=== PATIENT | female | born 1950 | race Caucasian/White ===

== ENCOUNTER 2016-12-02 12:56 | Outpatient (CLI) | END 2016-12-02 12:57 | disposition home or self-care (01) | LOC: RAD 12:56 | PROVIDERS: ATTEND Internal Medicine | DX: Z12.31 Encounter for screening mammogram for malignant neoplasm of breast (principal) | CPT/HCPCS: 77067 ==

== ENCOUNTER 2017-01-23 08:00 | Outpatient (RCR) ==
--- NOTE | 2017-01-09 10:50 | RS.OPPTDN ---
Subjective Date of Note: 01/09/17 Visit #: 4 Date of Evaluation: 01/01/17 Payer Source: MEDICARE Treatment Diagnosis: Rotator cuff arthropathy, AC OA R shld Current Subjective/complaints:: Patient reports she may have done too much yesterday. States she lifted a chair and could tell it may have been too heavy for her to lift. States the right shoulder in general feels better. She is performing her HEP. States she is performing the pendulum exercise in the shower. *Precautions: n/a Pain Assessment - Pain Description Pain Location: R shld Current Pain Intensity: 0 at rest - Treatment Modality: Ultrasound Parameters/Method Applied: X 10 mins 1.5 w/cm 2 continuous over the middle and anterior deltoid region of the right UE. Patient Position: Sitting - Heat/Cryotherapy Treatment: Hot Pack (X 15 mins to right shoulder) Interventions - Exercise/Activities/Manual Therapy Exercises/Activities: 21 mins. supine exercises of R shoulder PROM ,isometrics all directions 2 sets of 5 reps,3 # wand exercises of chest press and overhead flexion. Performed resisted bilateral shoulder ER in supine with red therand with no pain. Gave instructions for this at home and a red band. Given a green theraband for her scapular retraction exercises with her HEP. Manual Therapy: n/a HOME EXERCISE PROGRAM: cervical lat side bending, scapular retraction green band and shld ext and ER with red tband, and pendulum ex - Objective Findings Observations,measurements,etc.: Patient demonstrates functional PROM. Muscle strength is generally 4+/5 in all directions with shoulder in neutral. - Charges Total Direct Minutes: 31 minutes Total Treatment Time: 46 mins Procedures billed for this date of service:: HP, US, EX Assessment: Patient reports right shoulder feeling better. She is performing her exercises at home. She tries to avoid aggravating the right shoulder, but may have lifted too much yesterday. Continues to have discomfort with use of the right UE for reaching and lifting. Patient Education: Education of diagnosis, Body/Joint mechanics, Home Exercise Program, Activity Modification, Education of Plan of Care Patient demonstrates compliance with HEP?: Yes Short Term Goals Goal #1: pt with improved ROM R shld flex 150 abd 110 AAROM Goal to be met by: 01/15/17 Progress towards Goal:: Progressing Goal #2: pt with decreased pain <4/10 with activity Goal to be met by: 01/15/17 Progress towards Goal:: Progressing [facility] Goals Goal #1: pt with improved ROM R shld flex 160 abd 120 AROM Goal to be met by: 01/31/17 Progress towards goal: Progressing Goal #2: pt independent with HEP to maintain functional gains after dc Goal to be met by: 01/31/17 Progress towards goal: Progressing Goal #3: pt with increased strength R UE 4 to 4+/5 Goal to be met by: 01/31/17 Progress towards goal: Met Goal #4: pt to return to normal work activities with decreased pain. Goal to be met by: 01/31/17 Plan PLAN OF CARE EXPIRES ON:: 01/31/17 ORDER # VISITS AND/OR THROUGH DATE: 01/31/17 PLAN: Progress Exercises
--- NOTE | 2017-01-13 09:21 | RS.OPPTDN ---
Subjective Date of Note: 01/13/17 Visit #: 5 Date of Evaluation: 01/01/17 Payer Source: MEDICARE Treatment Diagnosis: Rotator cuff arthropathy, AC OA R shld Current Subjective/complaints:: Patient reports she is improving,sleeping better.She has no R shoulder pain at rest this morning,slight elevation of pain with external rotation. *Precautions: n/a Pain Assessment - Pain Description Pain Location: R shld Current Pain Intensity: 0 at rest - Treatment Modality: Ultrasound Parameters/Method Applied: 10 mins.@1.5 w/cm2,continuous mode to R shoulder @ RTC tendons site. - Heat/Cryotherapy Treatment: Hot Pack (20 mins. prior to US and exercises) Interventions - Exercise/Activities/Manual Therapy Exercises/Activities: 25 mins. supine exercises of R shoulder PROM ,isometrics all directions 2 sets of 10 reps,3 # wand exercises of chest press and overhead ,then sitting position of the same with 1# dumbbell,HEP review. Total minutes of Exercise: 25 Manual Therapy: n/a Total minutes of Manual Therapy: 0 HOME EXERCISE PROGRAM: cervical lat side bending, scapular retraction green band and shld ext and ER with red tband, and pendulum ex - Charges Total Direct Minutes: 35 Total Treatment Time: 55 Procedures billed for this date of service:: hp,US ,ex 2 Assessment: Patient progressing ,reports less difficulty with ADL's,sleeping better.She has crepitus present in the AC joint with IR/ER of the shoulder,but no sharp pain.Reminded patient to avoid the , 'no pain , no gain " theory." Patient Education: Education of diagnosis, Body/Joint mechanics, Home Exercise Program, Home Safety, Activity Modification, Education of Plan of Care Patient demonstrates compliance with HEP?: Yes Short Term Goals Goal #1: pt with improved ROM R shld flex 150 abd 110 AAROM Goal to be met by: 01/15/17 Progress towards Goal:: Partially Met Goal #2: pt with decreased pain <4/10 with activity Goal to be met by: 01/15/17 Progress towards Goal:: Progressing [facility] Goals Goal #1: pt with improved ROM R shld flex 160 abd 120 AROM Goal to be met by: 01/31/17 Progress towards goal: Progressing Goal #2: pt independent with HEP to maintain functional gains after dc Goal to be met by: 01/31/17 Progress towards goal: Progressing Goal #3: pt with increased strength R UE 4 to 4+/5 Goal to be met by: 01/31/17 Progress towards goal: Met Goal #4: pt to return to normal work activities with decreased pain. Goal to be met by: 01/31/17 Plan PLAN OF CARE EXPIRES ON:: 01/31/17 ORDER # VISITS AND/OR THROUGH DATE: 01/31/17 PLAN: Progress Exercises
--- NOTE | 2017-01-17 10:23 | RS.OPPTDN ---
Subjective Date of Note: 01/17/17 Visit #: 6 Date of Evaluation: 01/01/17 Payer Source: MEDICARE Treatment Diagnosis: Rotator cuff arthropathy, AC OA R shld Current Subjective/complaints:: Patient feels she possibly did her exericses wromg due to increased soreness.She actually is doing them properly,but recommended not to do as many reps. until the soreness lessens. *Precautions: n/a Pain Assessment - Pain Description Pain Location: R shld Pain Description: Dull, Aching Pain Description: aching with overhead tasks Current Pain Intensity: 0 at rest - Treatment Modality: Ultrasound Parameters/Method Applied: 10 mins. @ 1.5 w/cm2 to R shoulder (anterior deltoid area ) Patient Position: Sitting - Heat/Cryotherapy Treatment: Hot Pack (20 ins.prior to US and exercises) Interventions - Exercise/Activities/Manual Therapy Exercises/Activities: 20 mins. instruction and return demo of postural pullbacks with yellow theraband for rowing motion ,overhead pulling down and ended with pulling up with band under the feet ( elbows fully extended). Total minutes of Exercise: 20 Manual Therapy: n/a Total minutes of Manual Therapy: 0 HOME EXERCISE PROGRAM: cervical lat side bending, scapular retraction green band and shld ext and ER with red tband, and pendulum ex - Charges Total Direct Minutes: 30 Total Treatment Time: 50 Procedures billed for this date of service:: hp,US,ex 1 Assessment: Patient has increased ROM ,and strength ,but fatigues easily with overhead motion using theraband.She has no report of sharp pain today.She can benefit from strengthening for stability of the R shoulder,especially for tasks that require reaching away from her body. Patient Education: Education of diagnosis, Body/Joint mechanics, Home Exercise Program, Home Safety, Activity Modification, Education of Plan of Care Patient demonstrates compliance with HEP?: Yes Short Term Goals Goal #1: pt with improved ROM R shld flex 150 abd 110 AAROM Goal to be met by: 01/15/17 Progress towards Goal:: Met Goal #2: pt with decreased pain <4/10 with activity Goal to be met by: 01/15/17 Progress towards Goal:: Progressing Group Home Goals Goal #1: pt with improved ROM R shld flex 160 abd 120 AROM Goal to be met by: 01/31/17 Progress towards goal: Progressing Goal #2: pt independent with HEP to maintain functional gains after dc Goal to be met by: 01/31/17 Progress towards goal: Partially Met Goal #3: pt with increased strength R UE 4 to 4+/5 Goal to be met by: 01/31/17 Progress towards goal: Met Goal #4: pt to return to normal work activities with decreased pain. Goal to be met by: 01/31/17 Progress towards goal: Progressing Plan PLAN OF CARE EXPIRES ON:: 01/31/17 ORDER # VISITS AND/OR THROUGH DATE: 01/31/17 PLAN: Continue skilled PT to increase strength and stability in the R shoulder to safely do ADL ' s.
--- NOTE | 2017-01-20 09:28 | RS.OPPTDN ---
Subjective Date of Note: 01/20/17 Visit #: 7 Date of Evaluation: 01/01/17 Payer Source: MEDICARE Treatment Diagnosis: Rotator cuff arthropathy, AC OA R shld Current Subjective/complaints:: Patient reports increased muscle soreness from doing yardwork,but no sharp pain in the r shoulder.She is pleased with her progress. *Precautions: n/a Pain Assessment - Pain Description Pain Location: R shld Pain Description: Dull, Aching Pain Description: aching with overhead tasks Current Pain Intensity: 0 at rest - Heat/Cryotherapy Treatment: Hot Pack (20 mins. prior to exercises) Interventions - Exercise/Activities/Manual Therapy Exercises/Activities: 35 mins. total in supine ,sit and stand for PROM, progressed AROM with 1.5 to 2 # resistance multiple reps. of shoulder flexion , IR/ER,scaption,abduction scapular pinches,horizontal adduction,pendulum exercises.AROM is WNL all directions today. Total minutes of Exercise: 35 Manual Therapy: n/a Total minutes of Manual Therapy: 0 HOME EXERCISE PROGRAM: cervical lat side bending, scapular retraction green band and shld ext and ER with red tband, and pendulum ex - Charges Total Direct Minutes: 35 Total Treatment Time: 35 Procedures billed for this date of service:: hp,ex 2 Assessment: Patient progressing well toward all rehab goals.She has increased strength ,less pain with ADL's.She has symptoms of painful arc syndrome occasionally when the R UE is moving through scaption. Patient Education: Education of diagnosis, Body/Joint mechanics, Home Exercise Program, Home Safety, Activity Modification, Education of Plan of Care Patient demonstrates compliance with HEP?: Yes Short Term Goals Goal #1: pt with improved ROM R shld flex 150 abd 110 AAROM Goal to be met by: 01/15/17 Progress towards Goal:: Met Goal #2: pt with decreased pain <4/10 with activity Goal to be met by: 01/15/17 (4-5 with yardwork over the weekend,but is generally less) Progress towards Goal:: Partially Met Care Home Goals Goal #1: pt with improved ROM R shld flex 160 abd 120 AROM Goal to be met by: 01/31/17 Progress towards goal: Partially Met Goal #2: pt independent with HEP to maintain functional gains after dc Goal to be met by: 01/31/17 Progress towards goal: Partially Met Goal #3: pt with increased strength R UE 4 to 4+/5 Goal to be met by: 01/31/17 Progress towards goal: Met Goal #4: pt to return to normal work activities with decreased pain. Goal to be met by: 01/31/17 Progress towards goal: Partially Met Plan PLAN OF CARE EXPIRES ON:: 01/31/17 ORDER # VISITS AND/OR THROUGH DATE: 01/31/17 PLAN: D/C next session after review of exisitng HEP ,joint protection,and safety precautions for ADL's.
--- NOTE | 2017-01-23 09:19 | RS.OPPTDC ---
Date of Discharge: 01/23/17 Date of Evaluation: 01/01/17 Number of Visits: 8 Treatment Diagnosis: Rotator cuff arthropathy, AC OA R shld Current Level of Function: 9% deficit in the R shoulder based on UE functional score of 70 today. Current Complaints/Gains: Patient pleased with her progress,is compliant to all recommendations,doing her HEP as tolerated. Pain Assessment - Pain Description Pain Location: none present today Current Pain Intensity: 0 at rest Functional Outcome Measure UE Functional Index: 70 - G Codes & Severity Modifier G Codes & Modifier: NA Source of G Code score: NA Observation - Observation Posture: Rounded Shoulders Handedness: Right Gait - Gait Pattern General Gait Pattern Observation: No Deviations/Normal General Range of Motion: WNL all directions. Muscle Strength: 4+/5 - Heat/Cryotherapy Treatment: Hot Pack (20 mins. prior to exercises) Interventions - Exercise/Activities/Manual Therapy Exercises/Activities: 40 mins. total in supine ,sit and stand for PROM, progressed AROM with 1.5 to 2 # resistance multiple reps. of shoulder flexion , IR/ER,scaption,abduction scapular pinches,horizontal adduction,pendulum exercises.AROM is WNL all directions today.HEP copies given today. Total minutes of Exercise: 40 Manual Therapy: n/a Total minutes of Manual Therapy: 0 HOME EXERCISE PROGRAM: cervical lat side bending, scapular retraction green band and shld ext and ER with red tband, and pendulum ex - Charges Total Direct Minutes: 40 Total Treatment Time: 60 Procedures billed for this date of service:: hp,ex 3 Assessment Assessment: All rehab goals met.She has good return demo of HEP today. Patient Education: Home Exercise Program Rehab Potential: Good Short Term Goals Goal #1: pt with improved ROM R shld flex 150 abd 110 AAROM Goal to be met by: 01/15/17 Progress towards Goal:: Met Goal #2: pt with decreased pain <4/10 with activity Goal to be met by: 01/15/17 Progress towards Goal:: Met [employer] Goals Goal #1: pt with improved ROM R shld flex 160 abd 120 AROM Goal to be met by: 01/31/17 Progress towards goal: Met Goal #2: pt independent with HEP to maintain functional gains after dc Goal to be met by: 01/31/17 Progress towards goal: Met Goal #3: pt with increased strength R UE 4 to 4+/5 Goal to be met by: 01/31/17 Progress towards goal: Met Goal #4: pt to return to normal work activities with decreased pain. Goal to be met by: 01/31/17 Progress towards goal: Met
== END 2017-02-06 ==
PROVIDERS: ATTEND Orthopaedic Surgery
DX: M19.011 Primary osteoarthritis, right shoulder (principal); M75.121 Complete rotator cuff tear or rupture of right shoulder, not specified as traumatic

== ENCOUNTER 2017-11-24 08:54 | Outpatient (CLI) ==
--- NOTE | 2017-11-24 11:59 | MAMMO ---
EXAM: Bilateral digital screening mammogram (2-D and 3-D) History: Screening Comparison: Bilateral mammogram 12/02/2016 Findings: MLO and CC views of bilateral breasts demonstrate scattered fibroglandular breast parenchy ma. CAD was reviewed by the radiologist. Tomosynthesis was performed. There are no dominant masses , no suspicious microcalcifications and no architectural distortions Impression: Stable negative mammogram. Recommend followup routine screening mammography in 1 year. BIRADS 1
== END 2017-11-24 08:55 | disposition home or self-care (01) ==
LOC: RAD 08:54
PROVIDERS: ATTEND Internal Medicine
DX: Z12.31 Encounter for screening mammogram for malignant neoplasm of breast (principal)
CPT/HCPCS: 77067